=== PATIENT | female | born 1975 | race Caucasian/White ===

== ENCOUNTER 2022-02-16 15:11 | Emergency (ER) | payer OTHER, SELFPAY ==
[2022-02-16 15:19] VITALS: BP 154/94; PULSE 87; RESP 18; TEMP 37.3; O2SAT 98
[2022-02-16 15:28] VITALS: BP 154/94; PULSE 87; RESP 18; TEMP 37.3; O2SAT 98
--- NOTE | 2022-02-16 15:29 | ED.URI ---
HPI - URI/Sore Throat General Chief Complaint: Upper Respiratory Infection Stated Complaint: Sore Throat/Headache Time Seen by Provider: 02/16/22 15:30 History of Present Illness HPI Narrative: Patient presents with a 3 day history of fever, body aches and sore throat. No shortness of breath no chest pain. Patient states her symptoms have resolved but they come back at night. Patient denies any exposure that she is aware of. Related Data Allergies Allergy/AdvReac Type Severity Reaction Status Date / Time ibuprofen AdvReac Other Verified 02/16/22 15:27 Review of Systems Review of Systems: CONSTITUTIONAL: Denies chills, or sweats. Reports fever and generalized body aches EYES: Denies visual changes, redness, or discharge. ENT: Denies otalgia. Reports nasal congestion runny nose and sore throat CARDIOVASCULAR: Denies chest pain, palpitations, or edema. RESPIRATORY: Denies dyspnea. Reports occasional cough GASTROINTESTINAL: Denies abdominal pain, nausea, vomiting, or diarrhea. GENITOURINARY: Denies dysuria or hematuria. SKIN: Denies rash or itching. MUSCULOSKELETAL: Denies back pain, joint pain, or myalgia. Reports generalized body aches NEUROLOGIC: Denies headache, numbness, or weakness. PSYCHIATRIC: Denies anxiety or depression. [facility] Social History Social History Smoking status: Former smoker Smoking end date: 02/09/11 Alcohol intake: never Comments At time of signature, agree with nursing past medical, surgical, social and family history. There is no relevant family history pertinent to the presenting complaint Course Course Level of Care: Express Care Visit Vital Signs Vital signs: Vital Signs Temperature 37.3 C 02/16/22 15:19 Pulse Rate 87 02/16/22 15:19 Respiratory Rate 18 02/16/22 15:19 Blood Pressure 154/94 H 02/16/22 15:19 Pulse Oximetry 98 02/16/22 15:19 Oxygen Delivery Room Air 02/16/22 15:19 Temperature 37.3 C 02/16/22 15:28 Pulse Rate 87 02/16/22 15:28 Respiratory Rate 18 02/16/22 15:28 Blood Pressure 154/94 H 02/16/22 15:28 Pulse Oximetry 98 02/16/22 15:28 Oxygen Delivery Room Air 02/16/22 15:28 Please FACUNDO schedule a followup visit with your personal physician for further evaluation and treatment. Including recheck and discussion of your blood pressure. If your symptoms persist, change or worsen significantly before you can contact your personal physician then please, without delay, go to the emergency department for further evaluation MDM - URI/Sore Throat Differential Diagnosis Differential diagnosis: Likely upper respiratory infection, croup, otitis media, sinusitis, viral infection, bronchitis, influenza and pharyngitis Lab Data Labs: Influenza A Screen Negative Reference Range: Negative Influenza B Screen Negative Reference Range: Negative Strep Screen Presumptive Negative *(Reference Range: Negative)* Discharge Plan Discharge Clinical Impression: Upper respiratory symptom, Upper respiratory infection, Upper respiratory infection, viral Patient Disposition: Home, Self-Care Condition: Stable Instructions: Antibiotic Form, Upper Respiratory Infection (DC) Additional Instructions: Throw away your current toothbrush and begin using a new toothbrush in 48 hours in order to prevent re-infection. If anyone else's toothbrush is stored near yours, they should also throw away their current toothbrush and begin using a new one. *Sanitize all reusable water bottles. *Do not share items with others. *Wash your hands often. CAN TRY HONEY FOR COUGH IF OLDER THAN ONE YEAR. MUCINEX, NYQUIL, DAYQUIL, ROBITUSSIN AND OTHER OTC COLD/COUGH MEDICATIONS CAN ALL BE USED IN TEENAGERS AND ADULTS WITH CAUTION. DO NOT MIX OR USE MULTIPLE THERAPIES WITHOUT DISCUSSING WITH YOUR DO
== END 2022-02-16 15:50 | disposition home or self-care (01) ==
PROVIDERS: Emergency Provider Nurse Practitioner Family
DX: J06.9 Acute upper respiratory infection, unspecified (principal); Z87.891 Personal history of nicotine dependence
CPT/HCPCS: 87081; 87804; 87880; 99213; G0463

== ENCOUNTER 2023-05-23 16:32 | Emergency (ER) | payer OTHER, SELFPAY ==
[2023-05-23 16:41] VITALS: BP 136/95; PULSE 69; RESP 18; TEMP 37; O2SAT 100
--- NOTE | 2023-05-23 17:25 | ED.GENADULT ---
HPI - General Adult General Chief complaint: Back Pain/Injury Stated complaint: Left Flank Pain/Vomiting Source: patient, RN notes reviewed and old records reviewed Mode of arrival: ambulatory Limitations: no limitations History of Present Illness HPI narrative: 47-year-old female to Express Care with complaint of severe left flank pain radiating to left abdomen that started immediately prior to arrival. Patient endorsing pain of 10/10 and nausea upon arrival. Patient endorses history of gastric surgery, kidney stones, gallbladder removal. Patient in moderate distress in exam room from pain. Related Data Home Medications Medication Instructions Recorded Confirmed Vitamin B12 05/23/23 cholecalciferol (vitamin D3) 1,250 05/23/23 mcg (50,000 unit) capsule ferrous sulfate 325 mg (65 mg mg 05/23/23 iron) tablet (FeroSul) Allergies Allergy/AdvReac Type Severity Reaction Status Date / Time ibuprofen AdvReac Other Verified 02/16/22 15:27 Review of Systems Review of Systems: All systems reviewed & are unremarkable except as noted in HPI and below Constitutional: Constitutional: Reports no additional constitutional complaints Eyes: Eyes: Reports no additional eye complaints ENT: Reports system reviewed and no additional complaints, except as documented Cardiovascular: Cardiovascular: Reports no additional cardiovascular complaints, Denies chest pain and Denies dyspnea Respiratory: Respiratory: Reports no additional respiratory complaints, Denies cough and Denies dyspnea Gastrointestinal: Gastrointestinal: Reports nausea Genitourinary: Genitourinary: Reports flank pain ( Left radiating to left abdomen) Musculoskeletal: Musculoskeletal: Reports no additional musculoskeletal complaints Neurologic: Reports system reviewed and no additional complaints, except as documented Psychiatric: Psychiatric: Reports no additional psychiatric complaints PMFSH Social History Social History Smoking status: Former smoker Smoking end date: 02/09/11 Alcohol intake: never Comments At the time of my signature, I reviewed and agree with the nursing past medical, surgical, social, and family history. There is no relevant family history pertinent to the patient complaint. Exam Const: General: cooperative, no acute distress, alert, in distress moderate, anxious, ill appearing acutely, uncomfortable and well nourished Nutritional Appearance: well nourished Orientation/consciousness: patient oriented x3 Limitations: no limitations HENMT: Head: normal to inspection Ears: external ears normal Face/Nose/Sinus: Normal external nose present, Normal nares present, normal facial exam, No erythema and No edema Face and sinus: normal facial exam, no erythema and no edema Mouth: Yes Normal oral and palatal mucosa present Eyes: General: appearance normal, both eyes and all related structures Neck: Neck: normal visual inspection, full ROM and no meningeal signs Lymphatic: no lymphadenopathy noted and no lymphedema noted Chest: Chest palpation & inspection: normal inspection of the chest Resp: Effort & Inspection: normal respiratory effort and able to speak in complete sentences Auscultation: clear to auscultation bilaterally Cardio: Jugular venous distension: no JVD Rate: regular rate Rhythm: regular rhythm GI: GI Palp: Yes abdominal tenderness ( left upper, left lower) : General: Yes CVA tenderness on the left Back/Spine/Pelvis: Cervical Spine: cervical ROM normal Skin: General skin exam: normal color, no rashes or lesions noted and turgor normal Neuro: General: patient oriented x3, gait normal, moves all extremities and no meningeal signs Speech: normal speech Gait exam (Neuro): Normal gait present Extrem: General: normal to inspection, full ROM and capillary refill normal Psych: Appearance: grossly normal and well kempt Affect: Anxious aff
[2023-05-23] MEDS: ONDANSETRON HCL ODT 4 MG TABLET PO (17:38)
== END 2023-05-23 17:36 | disposition short-term general hospital (02) ==
LOC: EXPBETH 16:35
PROVIDERS: Emergency Provider Nurse Practitioner Family
DX: R10.9 Unspecified abdominal pain (principal); R10.12 Left upper quadrant pain; R10.32 Left lower quadrant pain; R11.0 Nausea; Z87.891 Personal history of nicotine dependence; E03.9 Hypothyroidism, unspecified; Z98.84 Bariatric surgery status; Z96.0 Presence of urogenital implants
CPT/HCPCS: 81003; 99213; A9270; G0463